=== PATIENT | male | born 1970 | race Caucasian/White ===

== ENCOUNTER 2017-05-21 01:00 | Emergency (ER) | payer MEDICAID ==
[~2017-05-21] VITALS: Ht 175.3 cm; Wt 106.8 kg
[2017-05-21] MEDS ORDERED: MORPHINE SULFATE 4 MG/ML, 1ML IVPush PRN (01:30)
[2017-05-21] MEDS ORDERED: ONDANSETRON 2MG/ML, 2ML IVPush ONE (01:30)
[2017-05-21] MEDS ORDERED: NITROGLYCERIN OINT 2%, 1GM TP ONE ×2 (01:30→01:38)
[2017-05-21] MEDS ORDERED: ASPIRIN 81 MG TABLET CHEW PO ONE (01:30)
[2017-05-21] MEDS ORDERED: SODIUM CHLORIDE FLUSH 10ML SYR IVF ONE (01:30)
[2017-05-21] MEDS ORDERED: SODIUM CHLORIDE 0.9% 1,000ML IVBOLUS ONE (01:30)
[2017-05-21] MEDS ORDERED: MORPHINE SULFATE 4 MG/ML, 1ML ONE (01:38)
[2017-05-21] MEDS ORDERED: ONDANSETRON 2MG/ML, 2ML ONE (01:39)
[2017-05-21] MEDS ORDERED: ASPIRIN 81 MG TABLET CHEW ONE (01:39)
[2017-05-21 02:03] LABS: ASPARTATE AMINO TRANSFERASE 28 U/L (15-37); BLOOD UREA NITROGEN 11 mg/dL (7-18)
[2017-05-21 02:08] LABS: IS PT STATUS REG ER OR PRE ER? YES
[2017-05-21 03:13] VITALS: BP 115/69
== END 2017-05-21 03:48 | disposition left against medical advice (07) ==
LOC: ED 02:44
DX: R07.2 Precordial pain (principal); J45.909 Unspecified asthma, uncomplicated; F17.200 Nicotine dependence, unspecified, uncomplicated; Z88.0 Allergy status to penicillin; Z88.1 Allergy status to other antibiotic agents
CPT/HCPCS: 36415; 71010; 80053; 83880; 84484; 85025; 93005; 99285

== ENCOUNTER 2019-03-13 16:20 | Emergency (ER) | payer MEDICAID, OTHER ==
[~2019-03-13] VITALS: Ht 172.7 cm; Wt 107.0 kg
[2019-03-13 16:58] LABS: BASOPHILS # (AUTO) 0.06 x10^3/uL (0-0.1); BASOPHILS % (AUTO) 1 % (0-1); EOSINOPHILS # (AUTO) 0.29 x10^3/uL (0-0.4); EOSINOPHILS % (AUTO) 3 % (1-7); LYMPHOCYTES # (AUTO) 2.41 x10^3/uL (1-3.4); LYMPHOCYTES % (AUTO) 28 % (22-44); MD NO; MEAN CORPUSCULAR HEMOGLOBIN 31.8 pg (27.5-34.5); MEAN CORPUSCULAR VOLUME 96.3 fL (81-97); MEAN PLATELET VOLUME 8.9 fL (7.4-10.4); MONOCYTES # (AUTO) 0.51 x10^3/uL (0.2-0.8); MONOCYTES % (AUTO) 6 % (2-9); NEUTROPHILS % (AUTO) 62 % (42-75); PLATELET COUNT 256 x10^3/uL (130-400); RED BLOOD COUNT 5.01 x10^6/uL (4.38-5.82); RED CELL DISTRIBUTION WIDTH 12.4 % (9.4-14.8)
[2019-03-13 17:09] LABS: ALBUMIN 3.9 g/dL (3.4-5.0); ANION GAP 7 mmol/L (5-15); CALCIUM 8.6 mg/dL (8.5-10.1); CHLORIDE 107 mmol/L (98-107); CREATININE 0.97 mg/dL (0.7-1.3)
[2019-03-13 18:28] VITALS: BP 125/68
== END 2019-03-13 18:31 | disposition home or self-care (01) ==
LOC: ED 18:19
DX: G40.309 Generalized idiopathic epilepsy and epileptic syndromes, not intractable, without status epilepticus (principal); J45.909 Unspecified asthma, uncomplicated
CPT/HCPCS: 36415; 70450; 80048; 82040; 85025; 93005; 99284

== ENCOUNTER 2021-05-22 08:43 | Emergency (ER) | payer SELFPAY ==
[~2021-05-22] VITALS: Ht 172.7 cm; Wt 113.4 kg
--- NOTE | 2021-05-22 09:07 | NUR ---
PT AMBULATORY TO ROOM 25 W/ C/O DRY MOUTH, HIGH BLOOD SUGAR, ANXIETY. PT STATES HE HAS GAINED ABOUT 30 LBS IN 6 MONTHS. STATES HE HAS BEEN EATING A LOT OF SUGAR OVER THE LAST FEW MONTHS. PT STATES HE CHECKED HIS BS YESTERDAY NIGHT AND IT WAS NOTED TO BE 240. PT BELIEVES HE IS A DIABETIC. PT RESTING ON GURNEY. NADN. MONITORS APPLIED. VSS. WARM BLANKET PROVIDED. CALL LIGHT IN REACH. [facility] AT BEDSIDE FOR EVAL.
--- NOTE | 2021-05-22 09:17 | NUR ---
PT AWARE OF NEED FOR UA SAMPLE. STATES HE CANNOT PROVIDE SAMPLE AT THIS TIME. URINAL LEFT AT BEDSIDE.
[2021-05-22] MEDS ORDERED: LORazepam 1MG TABLET ONE (09:20)
[2021-05-22] MEDS ORDERED: LORazepam 1MG TABLET PO ONE (09:30)
[2021-05-22 09:40] LABS: BASOPHILS % (AUTO) 1 % (0-1); EOSINOPHILS % (AUTO) 3 % (1-7); LYMPHOCYTES % (AUTO) 32 % (22-44); MEAN CORPUSCULAR HEMOGLOBIN 31.4 pg (27.5-34.5); MEAN CORPUSCULAR HGB CONC 34.9 g/dL (33.2-36.2); MEAN PLATELET VOLUME 9.1 fL (7.4-10.4); MONOCYTES % (AUTO) 8 % (2-9); NEUTROPHILS % (AUTO) 57 % (42-75); PLATELET COUNT 252 x10^3/uL (130-400); RED BLOOD COUNT 4.83 x10^6/uL (4.38-5.82); RED CELL DISTRIBUTION WIDTH 12.8 % (9.4-14.8)
[2021-05-22 09:46] LABS: MICROSCOPIC NOT IND
[2021-05-22 09:53] LABS: ALANINE AMINOTRANSFERASE 54 U/L (12-78); ALBUMIN 3.6 g/dL (3.4-5.0); CALCIUM 8.5 mg/dL (8.5-10.1); CREATININE 1.19 mg/dL (0.7-1.3)
[2021-05-22 09:55] LABS: ALKALINE PHOSPHATASE 86 U/L (45-117); BILIRUBIN,TOTAL 0.3 mg/dL (0.2-1.0); TOTAL PROTEIN 7.4 g/dL (6.4-8.2)
--- NOTE | 2021-05-22 10:00 | NUR ---
PT RESTING ON GURNEY. NADN. TOBIN.
[2021-05-22 10:17] LABS: ANION GAP 5 mmol/L (5-15); CHLORIDE 108 mmol/L (98-107)
--- NOTE | 2021-05-22 10:20 | NUR ---
PT CHART REVIEWED AND PLACED FOR RECHECK.
[2021-05-22 10:37] VITALS: BP 109/68
--- NOTE | 2021-05-22 10:37 | NUR ---
[facility] AT BEDSIDE FOR RE-EVAL.
== END 2021-05-22 11:01 | disposition home or self-care (01) ==
LOC: ED 10:02
DX: F41.1 Generalized anxiety disorder (principal); R63.1 Polydipsia; R35.8 Other polyuria; R42 Dizziness and giddiness; R63.5 Abnormal weight gain; J45.909 Unspecified asthma, uncomplicated; R10.9 Unspecified abdominal pain; Z68.38 Body mass index [BMI] 38.0-38.9, adult
CPT/HCPCS: 36415; 71045; 80053; 81003; 82962; 85025; 93005; 99285